=== PATIENT | female | born 1985 | race Caucasian/White ===

== ENCOUNTER 2022-11-05 13:42 | Emergency (ER) | payer MEDICAID ==
[~2022-11-05] VITALS: Ht 175.3 cm; Wt 113.0 kg
[2022-11-05 13:50] VITALS: BP 151/100; PULSE 77; RESP 20; TEMP 98.2; O2SAT 98
[2022-11-05] MEDS ORDERED: SULF1TAB48 MT (15:21)
[2022-11-05] MEDS ORDERED: HYDR45CR12 TP (15:21)
== END 2022-11-05 16:50 | disposition home or self-care (01) ==
LOC: ER 13:42
DX: S80.869A Insect bite (nonvenomous), unspecified lower leg, initial encounter (principal); X58.XXXA Exposure to other specified factors, initial encounter; Y93.89 Activity, other specified; Y92.89 Other specified places as the place of occurrence of the external cause; Y99.8 Other external cause status
CPT/HCPCS: 81025; 99282; 99283